=== PATIENT | male | born 1965 | race Caucasian/White ===

== ENCOUNTER 2020-09-10 10:10 | Inpatient (IN) | payer MEDICAID ==
[~2020-09-10] VITALS: Ht 175.3 cm; Wt 68.2 kg
[2020-09-10] VITALS (11 sets, daily range): BP systolic 75–123; BP diastolic 42–96
[2020-09-10] MEDS ORDERED: acetaminophen 325mg tablet PO STA (10:20)
[2020-09-10] MEDS ORDERED: normal saline 1000ML IV soln IV ONE (10:20)
[2020-09-10] MEDS ORDERED: TOBRAMYCIN IV STA (10:43)
[2020-09-10] MEDS ORDERED: NORMAL SALINE IV STA (10:43)
[2020-09-10 10:58] LABS: HEMOGLOBIN 9.7 g/dl (14.0-17.9); MEAN PLATELET VOLUME 7.5 FL (7.4-10.4); RED CELL DISTRIBUTION WIDTH 19.3 % (11.5-14.5)
[2020-09-10 11:00] LABS: BASOPHILS % (AUTO) 0.1 % (0-1); EOSINOPHILS % (AUTO) 0.2 % (0-6); HEMATOCRIT 29.9 % (42.0-52.0); LYMPHOCYTES # (AUTO) 0.3 X10'3 (1.1-4.8); LYMPHOCYTES % (AUTO) 2.5 % (21-51); MEAN CORPUSCULAR HEMOGLOBIN 25.4 PG (27.0-31.0); MEAN CORPUSCULAR HGB CONC 32.5 g/dL (33.0-36.5); MEAN CORPUSCULAR VOLUME 78.1 FL (78-98); MONOCYTES # (AUTO) 0.3 X10'3 (0-0.9); MONOCYTES % (AUTO) 2.2 % (2-12); NEUTROPHILS # (AUTO) 11.6 X10'3 (1.8-7.7); PLATELET COUNT 215 X10'3 (140-440); RED BLOOD COUNT 3.83 X10'6 (4.70-6.10); WHITE BLOOD COUNT 12.2 X10'3 (4.5-11.0)
[2020-09-10 11:12] LABS: ALANINE AMINOTRANSFERASE 99 U/L (12-78); ALBUMIN 2.5 G/DL (3.4-5.0); ALBUMIN/GLOBULIN RATIO 0.5 (1.1-1.5); ALKALINE PHOSPHATASE 178 IU/L (46-116); ANION GAP 8 (8-16); ASPARTATE AMINO TRANSFERASE 50 U/L (10-37); BILIRUBIN,TOTAL 0.5 MG/DL (0.1-1.0); BLOOD UREA NITROGEN 92 MG/DL (7-18); BUN/CREATININE RATIO 23.1 (5.4-32.0); C-REACTIVE PROTEIN 19.34 MG/DL (0.0-0.5); CALCIUM 7.8 MG/DL (8.5-10.1); CHLORIDE 90 MMOL/L (99-107); CREATININE 3.98 MG/DL (0.60-1.10); GLUCOSE 120 MG/DL (70-104); MAGNESIUM 2.9 MG/DL (1.5-2.4); POTASSIUM 5.6 MMOL/L (3.5-5.1); SODIUM 126 MMOL/L (135-145); TOTAL CARBON DIOXIDE 28.5 MMOL/L (24-32); TOTAL PROTEIN 7.9 G/DL (6.4-8.2); eGFR 16 ML/MIN
[2020-09-10 11:34] LABS: ANISOCYTOSIS 2+; MICROCYTOSIS 1+; PLATELET ESTIMATE NORMAL; TOTAL CELLS COUNTED 100
[2020-09-10 11:36] LABS: SCHISTOCYTES FEW
[2020-09-10 11:44] LABS: CLARITY,URINE CLOUDY (Clear); COLOR,URINE YELLOW (Yellow); GLUCOSE, URINE NEGATIVE (Neg); KETONES,URINE NEGATIVE (Neg); LEUKOCYTE ESTERASE ,URINE MODERATE (Neg); NITRITES, URINE NEGATIVE (Neg); OCCULT BLOOD,URINE LARGE (Neg); PH,URINE 8.5 (4.8-8.0); PROTEIN,URINE 100 mg/dl (Neg); UROBILINOGEN,URINE 0.2 E.U/dL (0.2-1.0)
[2020-09-10 11:47] LABS: UA COLLECTION TYPE FOLEY CATH
[2020-09-10 11:50] LABS: BACTERIA,URINE 4+ /HPF (Neg); RBC,URINE TNTC /HPF (0-2); SQUAMOUS EPITHELIAL CELL,UR MODERATE /LPF (FEW); WBC,URINE TNTC /HPF (0-4)
[2020-09-10] MEDS ORDERED: CYCL-394 PO (12:35)
[2020-09-10] MEDS ORDERED: HYDR-4383 PO (12:35)
[2020-09-10] MEDS ORDERED: LORA-269 PO (12:35)
[2020-09-10] MEDS ORDERED: GABA300C PO (12:35)
[2020-09-10] MEDS ORDERED: PHEN-716 PO (12:35)
[2020-09-10] MEDS ORDERED: MELA3TAB39 PO (12:35)
[2020-09-10] MEDS ORDERED: FENT1PAT7 TOP (12:35)
[2020-09-10] MEDS ORDERED: POLY17PO10 PO (12:35)
[2020-09-10] MEDS ORDERED: METH5TAB2 PO (12:35)
[2020-09-10] MEDS ORDERED: PANT-47 PO (12:35)
[2020-09-10] MEDS ORDERED: acetaminophen 325mg tablet PO PRN (13:05)
[2020-09-10] MEDS ORDERED: ondansetron/PF 4mg/2ml inj IV PRN ×2 (13:05→19:35)
[2020-09-10] MEDS ORDERED: magnesium hydroxide 30ml (MOM) UD suspension PO PRN (13:05)
[2020-09-10] MEDS ORDERED: mag hydrox/Alum hydrox/simeth 30ml oral suspension PO PRN (13:05)
[2020-09-10] MEDS: normal saline 1000ml 1,000 ML IV SCH ×2 (14:46→23:12)
[2020-09-10] MEDS: morphine 2 MG/ML inj. syringe IV PRN (14:47)
--- NOTE | 2020-09-10 16:56 | NUR ---
RECEIVED REPORT FROM GLORIA JON
[2020-09-10] MEDS ORDERED: polyethylene glycol 3350 17gm powd pack PO PRN (17:55)
--- NOTE | 2020-09-10 18:11 | NUR ---
PT ARRIVED ON FLOOR
--- NOTE | 2020-09-10 18:25 | NUR ---
GAVE REPORT TO GLORIA ARROYO
--- NOTE | 2020-09-10 18:25 | NUR ---
Patient in room PCU 3010. I have received report from Elaine CASTRO and had the opportunity to ask questions and assume patient care.
[2020-09-10] MEDS ORDERED: iohexol 300 MG/1 ML 50ml polymer ONE (18:53)
[2020-09-10] MEDS ORDERED: ringers solution, lacted 1,000 ML IV SCH (19:35)
[2020-09-10] MEDS ORDERED: morphine 2 MG/ML inj. syringe IV PRN (19:35)
[2020-09-10] MEDS ORDERED: meperidine/PF 25mg/ml syringe IV PRN ×3 (19:35)
[2020-09-10] MEDS ORDERED: proCHLORperazine 10 MG/2 ml inj IV PRN (19:35)
[2020-09-10] MEDS ORDERED: morphine 4 MG/ML inj SYRINge IV PRN (19:35)
[2020-09-10] MEDS: LORazepam 1 MG tablet PO SCH (20:00)
[2020-09-10] MEDS: methadone 5mg tablet PO SCH (20:00)
[2020-09-10] MEDS: cyclobenzaprine 10mg tablet PO SCH (20:00)
[2020-09-10] MEDS ORDERED: pantoprazole 40mg Tablet.DR PO SCH (20:00)
[2020-09-10] MEDS ORDERED: fluoroscein sod 10% (100mg/ml) 5ml vial ONE (20:32)
[2020-09-10] MEDS ORDERED: sevoflurane 250ml liquid IH ONE (20:32)
[2020-09-10] MEDS ORDERED: glycopyrrolate 0.2mg/ml inj ONE (20:32)
[2020-09-10] MEDS ORDERED: midazolam 2 mg/2 ml injection ONE (20:44)
[2020-09-10] MEDS ORDERED: fentaNYL/PF 50MCG/1 ML 2ML syringe ONE ×2 (20:44→21:12)
[2020-09-10] MEDS ORDERED: propofol inj 20 ML IV ONE (20:49)
[2020-09-10] MEDS ORDERED: LIDOcaine 1%/PF 5ML 10 MG/ML VIAL ONE (20:49)
[2020-09-10] MEDS: tamsulosin 0.4mg capsule PO SCH (21:00)
[2020-09-10] MEDS: phenazopyridine 100mg tablet PO SCH (21:00)
[2020-09-10] MEDS: gabapentin 300mg capsule PO SCH (21:00)
[2020-09-10] MEDS: Melatonin 3mg tablet PO SCH (21:00)
[2020-09-10] MEDS ORDERED: rocuronium 10mg/ml inj IV ONE (21:17)
[2020-09-10] MEDS ORDERED: phenylephrine 10mg/ml inj. ONE (21:33)
--- NOTE | 2020-09-10 22:04 | NUR ---
Received from OR via , accompanied by Anesthesiologist DR LINDA and report given by Anesthesiolgist. AWAKENS TO VOICE. VITALS STABLE. EMERALD PAIN . UNGER WITH LIGHT RED URINE IN BAG. NG PLACED TO LIS.
[2020-09-10] MEDS ORDERED: bisacodyl 10mg suppository rectal RC PRN (22:05)
--- NOTE | 2020-09-10 22:54 | NUR ---
Report called to receiving nurse. Transferred via BED Belongings . Special Issues communicated to receiving nurse. AWAKE AND ORIENTED. VITALS STABLE. EMERALD PAIN TO OPERATIVE AREA. TO PCU RM 310 AT THIS TIME.
[2020-09-10] MEDS: pantoprazole 40MG/NS 100ML BAG 100 ML IV SCH (23:04)
--- NOTE | 2020-09-10 23:37 | NUR ---
MD Cornell notified for low blood pressure post procedure. PAGER ID: [phone] MESSAGE: Re: Jordan Stock. RM: [phone]. Patient returned from ureter stent placement & BPs are 90/48 & 75/42. Sarthak CASTRO [id number]
[2020-09-11] VITALS (13 sets, daily range): BP systolic 73–122; BP diastolic 42–79
[2020-09-11] MEDS ORDERED: normal saline 1000ml 1,000 ML IV ONE (00:25)
[2020-09-11] MEDS ORDERED: albumin (Human) 5% 250ml 250 ML IV ONE (00:25)
--- NOTE | 2020-09-11 00:25 | NUR ---
Repaged MD Cornell regarding persistently low blood pressure. PAGER ID: [phone] MESSAGE: Re: Jordan Stock. Rm: [phone]. Manual blood pressure reading 78/52 & 73/41. Sarthak CASTRO [id number]
[2020-09-11 02:05] LABS: BASOPHILS % (AUTO) 0.2 % (0-1); EOSINOPHILS % (AUTO) 0 % (0-6); HEMOGLOBIN 7.9 g/dl (14.0-17.9); LYMPHOCYTES # (AUTO) 0.3 X10'3 (1.1-4.8); MEAN CORPUSCULAR VOLUME 78.7 FL (78-98)
[2020-09-11 02:06] LABS: HEMATOCRIT 24.1 % (42.0-52.0); LYMPHOCYTES % (AUTO) 2.3 % (21-51); MEAN CORPUSCULAR HEMOGLOBIN 25.8 PG (27.0-31.0); MEAN CORPUSCULAR HGB CONC 32.7 g/dL (33.0-36.5); MEAN PLATELET VOLUME 7.7 FL (7.4-10.4); MONOCYTES # (AUTO) 0.8 X10'3 (0-0.9); MONOCYTES % (AUTO) 6.3 % (2-12); NEUTROPHILS # (AUTO) 12.1 X10'3 (1.8-7.7); NEUTROPHILS % (AUTO) 91.2 % (42-75); PLATELET COUNT 138 X10'3 (140-440); RED BLOOD COUNT 3.06 X10'6 (4.70-6.10); RED CELL DISTRIBUTION WIDTH 19.4 % (11.5-14.5); WHITE BLOOD COUNT 13.3 X10'3 (4.5-11.0)
[2020-09-11 02:08] LABS: ANION GAP 10 (8-16); BLOOD UREA NITROGEN 88 MG/DL (7-18); BUN/CREATININE RATIO 24.4 (5.4-32.0); CHLORIDE 102 MMOL/L (99-107); GLUCOSE 112 MG/DL (70-104); POTASSIUM 4.8 MMOL/L (3.5-5.1); SODIUM 135 MMOL/L (135-145); TOTAL CARBON DIOXIDE 23.3 MMOL/L (24-32); eGFR 18 ML/MIN
[2020-09-11] MEDS: pantoprazole 40MG/NS 100ML BAG 100 ML IV SCH ×5 (02:33→22:03)
--- NOTE | 2020-09-11 03:08 | NUR ---
Paged MD Cornell regarding drop in H&H. PAGER ID: [phone] MESSAGE: RE: Jordan Stock. Rm: [phone]. Pt: H&H dropped from 9.7/29.9 to 7.9/24.1. Do you want repeat hemogram in 6 hours? Sarthak CASTRO [id number]
--- NOTE | 2020-09-11 03:45 | NUR ---
Repaged MD Cornell regarding consistently low BP after one liter bolus & albumin administration. PAGER ID: [phone] MESSAGE: Re: Jordan Stock. Rm: [phone]. FYI: Patient blood pressure has remained persistently low 83/56 after liter bolus & albumin. Sarthak CASTRO, [id number]
--- NOTE | 2020-09-11 06:15 | NUR ---
Problems reprioritized. Patient report given, questions answered & plan of care reviewed with Lee Ann CASTRO.
--- NOTE | 2020-09-11 06:25 | NUR ---
Patient in room PCU 3010. I have received report from Sarthak CASTRO and had the opportunity to ask questions and assume patient care.
[2020-09-11] MEDS ORDERED: levoFLOXACIN-Levaquin 250mg/D5 50 ML IV SCH (08:20)
[2020-09-11] MEDS: normal saline 1000ml 1,000 ML IV SCH ×2 (09:05→20:04)
[2020-09-11] MEDS: methadone 5mg tablet PO SCH ×2 (11:02→19:25)
[2020-09-11] MEDS: cyclobenzaprine 10mg tablet PO SCH ×2 (11:08→19:25)
[2020-09-11] MEDS: LORazepam 1 MG tablet PO SCH ×2 (11:08→19:25)
[2020-09-11] MEDS: gabapentin 300mg capsule PO SCH (11:09)
[2020-09-11] MEDS: phenazopyridine 100mg tablet PO SCH ×3 (11:09→22:01)
[2020-09-11] MEDS: fentaNYL 25MCG/hour patch.TD72 TD SCH (11:09)
--- NOTE | 2020-09-11 11:24 | NUR ---
Page sent to Dr. Hussein: PAGER ID: [phone] MESSAGE: [phone] Jordan Stock: FYI patient has positive blood cultures-Miles ordered Meropenum for the abx. Thanks, Lee Ann [email or web address]
[2020-09-11] MEDS: meropenem inj 500 MG in normal saline 100ml IV soln 100 ML IV SCH ×2 (14:10→20:04)
--- NOTE | 2020-09-11 18:06 | NUR ---
Patient in room PCU 3010. I have received report from Lee Ann CASTRO and had the opportunity to ask questions and assume patient care.
--- NOTE | 2020-09-11 18:07 | NUR ---
Problems reprioritized. Patient report given, questions answered & plan of care reviewed with Sarthak CASTRO.
[2020-09-11] MEDS ORDERED: LIDOcaine 2% 10ml TOPICAL JELLY (Urojet) TP ONE (18:20)
[2020-09-11] MEDS: heparin, porcine 5000 units/ml vial SQ SCH (19:26)
[2020-09-11] MEDS: Melatonin 3mg tablet PO SCH (21:00)
[2020-09-11] MEDS: tamsulosin 0.4mg capsule PO SCH (22:01)
[2020-09-11] MEDS: HYDROcodone/acetaminophen 5mg/325mg tablet PO PRN (22:10)
[2020-09-12] MEDS: pantoprazole 40MG/NS 100ML BAG 100 ML IV SCH ×5 (01:35→23:19)
[2020-09-12 02:00] VITALS: BP 103/64
[2020-09-12] MEDS: HYDROcodone/acetaminophen 5mg/325mg tablet PO PRN ×2 (04:34→19:30)
[2020-09-12] MEDS: normal saline 1000ml 1,000 ML IV SCH ×2 (05:25→15:05)
[2020-09-12 06:00] VITALS: BP 99/64
--- NOTE | 2020-09-12 06:32 | NUR ---
Problems reprioritized. Patient report given, questions answered & plan of care reviewed with Marissa CASTRO.
--- NOTE | 2020-09-12 06:58 | NUR ---
Patient in room PCU 3010. I have received report from GLORIA ARROYO and had the opportunity to ask questions and assume patient care.
[2020-09-12 07:57] LABS: BASOPHILS % (AUTO) 0.4 % (0-1); EOSINOPHILS # (AUTO) 0.2 X10'3 (0-0.9); EOSINOPHILS % (AUTO) 2.3 % (0-6); HEMATOCRIT 26.7 % (42.0-52.0); HEMOGLOBIN 8.7 g/dl (14.0-17.9); LYMPHOCYTES # (AUTO) 0.9 X10'3 (1.1-4.8); LYMPHOCYTES % (AUTO) 9.2 % (21-51); MEAN CORPUSCULAR HEMOGLOBIN 26.1 PG (27.0-31.0); MEAN CORPUSCULAR HGB CONC 32.7 g/dL (33.0-36.5); MEAN CORPUSCULAR VOLUME 79.9 FL (78-98); MEAN PLATELET VOLUME 7.9 FL (7.4-10.4); MONOCYTES % (AUTO) 9.4 % (2-12); NEUTROPHILS # (AUTO) 8.1 X10'3 (1.8-7.7); NEUTROPHILS % (AUTO) 78.7 % (42-75); PLATELET COUNT 181 X10'3 (140-440); RED BLOOD COUNT 3.35 X10'6 (4.70-6.10); RED CELL DISTRIBUTION WIDTH 19.4 % (11.5-14.5); WHITE BLOOD COUNT 10.3 X10'3 (4.5-11.0)
[2020-09-12 08:37] LABS: ALBUMIN 2.3 G/DL (3.4-5.0); ANION GAP 16 (8-16); BLOOD UREA NITROGEN 54 MG/DL (7-18); BUN/CREATININE RATIO 33.1 (5.4-32.0); CALCIUM 9.3 MG/DL (8.5-10.1); CHLORIDE 109 MMOL/L (99-107); CREATININE 1.63 MG/DL (0.60-1.10); GLUCOSE 67 MG/DL (70-104); POTASSIUM 3.9 MMOL/L (3.5-5.1); SODIUM 145 MMOL/L (135-145); eGFR 44 ML/MIN
[2020-09-12 09:17] LABS: PLATELET ESTIMATE NORMAL
[2020-09-12 09:18] LABS: ANISOCYTOSIS 2+; HYPOGRANULAR PLATELETS FEW; MICROCYTOSIS 1+
[2020-09-12] MEDS: cyclobenzaprine 10mg tablet PO SCH ×2 (10:44→20:09)
[2020-09-12] MEDS: phenazopyridine 100mg tablet PO SCH ×3 (10:44→20:09)
[2020-09-12] MEDS: methadone 5mg tablet PO SCH ×2 (10:44→20:10)
[2020-09-12] MEDS: LORazepam 1 MG tablet PO SCH ×2 (10:44→20:09)
[2020-09-12] MEDS: gabapentin 300mg capsule PO SCH (10:44)
[2020-09-12] MEDS: heparin, porcine 5000 units/ml vial SQ SCH ×2 (10:45→20:10)
[2020-09-12] MEDS: meropenem inj 500 MG in normal saline 100ml IV soln 100 ML IV SCH ×2 (10:46→20:09)
[2020-09-12 11:00] VITALS: BP 113/62
[2020-09-12 15:00] VITALS: BP 96/58
[2020-09-12] MEDS ORDERED: ondansetron 4mg rapidly disintigrating tab PO PRN (15:40)
[2020-09-12] MEDS: morphine 2 MG/ML inj. syringe IV PRN (17:10)
[2020-09-12 18:00] VITALS: BP 94/64
--- NOTE | 2020-09-12 18:33 | NUR ---
Patient in room PCU 3010. I have received report from GLORIA Ann and had the opportunity to ask questions and assume patient care.
--- NOTE | 2020-09-12 18:53 | NUR ---
Problems reprioritized. Patient report given, questions answered & plan of care reviewed with GLORIA QUISPE.
[2020-09-12] MEDS: lactobacillus rhamnosus 10,000 MMU CELLS/CAPSULE PO SCH (20:10)
[2020-09-12] MEDS: tamsulosin 0.4mg capsule PO SCH (20:10)
[2020-09-12] MEDS: Melatonin 3mg tablet PO SCH (21:00)
[2020-09-12 22:00] VITALS: BP 94/57
[2020-09-13] MEDS: normal saline 1000ml 1,000 ML IV SCH ×3 (01:05→16:16)
[2020-09-13 02:00] VITALS: BP 118/74
[2020-09-13] MEDS: HYDROcodone/acetaminophen 5mg/325mg tablet PO PRN ×3 (02:35→22:24)
[2020-09-13] MEDS: morphine 2 MG/ML inj. syringe IV PRN (04:34)
[2020-09-13] MEDS: pantoprazole 40MG/NS 100ML BAG 100 ML IV SCH ×6 (04:34→22:27)
--- NOTE | 2020-09-13 06:00 | NUR ---
Patient in room PCU 3010. I have received report from BRITTANEY CASTRO and had the opportunity to ask questions and assume patient care.
--- NOTE | 2020-09-13 06:24 | NUR ---
Problems reprioritized. Patient report given, questions answered & plan of care reviewed with GLORIA Ross.
[2020-09-13 06:45] LABS: BASOPHILS # (AUTO) 0.1 X10'3 (0-0.2); EOSINOPHILS # (AUTO) 0.3 X10'3 (0-0.9); EOSINOPHILS % (AUTO) 5.4 % (0-6); HEMATOCRIT 27.2 % (42.0-52.0); HEMOGLOBIN 8.9 g/dl (14.0-17.9); LYMPHOCYTES # (AUTO) 0.9 X10'3 (1.1-4.8); LYMPHOCYTES % (AUTO) 15.9 % (21-51); MEAN CORPUSCULAR HEMOGLOBIN 26.1 PG (27.0-31.0); MEAN CORPUSCULAR HGB CONC 32.9 g/dL (33.0-36.5); MEAN CORPUSCULAR VOLUME 79.4 FL (78-98); MEAN PLATELET VOLUME 7.6 FL (7.4-10.4); MONOCYTES # (AUTO) 0.4 X10'3 (0-0.9); MONOCYTES % (AUTO) 7.4 % (2-12); NEUTROPHILS % (AUTO) 70.3 % (42-75); PLATELET COUNT 203 X10'3 (140-440); RED BLOOD COUNT 3.42 X10'6 (4.70-6.10); RED CELL DISTRIBUTION WIDTH 19.1 % (11.5-14.5); WHITE BLOOD COUNT 5.7 X10'3 (4.5-11.0)
[2020-09-13 06:55] LABS: ALBUMIN 2.2 G/DL (3.4-5.0); ANION GAP 9 (8-16); BLOOD UREA NITROGEN 29 MG/DL (7-18); BUN/CREATININE RATIO 27.6 (5.4-32.0); CALCIUM 8.1 MG/DL (8.5-10.1); CHLORIDE 110 MMOL/L (99-107); CREATININE 1.05 MG/DL (0.60-1.10); GLUCOSE 96 MG/DL (70-104); POTASSIUM 3.4 MMOL/L (3.5-5.1); SODIUM 145 MMOL/L (135-145); TOTAL CARBON DIOXIDE 25.6 MMOL/L (24-32); eGFR 73 ML/MIN
[2020-09-13 07:00] VITALS: BP 121/68
[2020-09-13] MEDS: cyclobenzaprine 10mg tablet PO SCH ×2 (08:45→20:06)
[2020-09-13] MEDS: phenazopyridine 100mg tablet PO SCH ×3 (08:46→21:59)
[2020-09-13] MEDS: lactobacillus rhamnosus 10,000 MMU CELLS/CAPSULE PO SCH ×2 (08:46→20:06)
[2020-09-13] MEDS: gabapentin 300mg capsule PO SCH (08:46)
[2020-09-13] MEDS: LORazepam 1 MG tablet PO SCH ×2 (08:46→20:07)
[2020-09-13] MEDS: methadone 5mg tablet PO SCH ×2 (08:46→20:06)
[2020-09-13] MEDS: heparin, porcine 5000 units/ml vial SQ SCH ×2 (08:47→20:06)
[2020-09-13] MEDS ORDERED: potassium Cl 20 mEq SR tablet PO STA (09:41)
[2020-09-13] MEDS: meropenem inj 500 MG in normal saline 100ml IV soln 100 ML IV SCH ×2 (09:56→20:05)
[2020-09-13 11:00] VITALS: BP 118/67
--- NOTE | 2020-09-13 12:23 | NUR ---
PATIENT WENT TO CT Addendum: 09/13/20 at 1224 by Vandana Dejesus RN WRONG PATIENT
[2020-09-13 15:00] VITALS: BP 121/80
--- NOTE | 2020-09-13 17:45 | NUR ---
PATIENT IS PLEASANTLY NON COMPLIANT WITH TURNING AND REPOSITIONING
--- NOTE | 2020-09-13 18:40 | NUR ---
Problems reprioritized. Patient report given, questions answered & plan of care reviewed with ERIKA CASTRO.
[2020-09-13] MEDS: tamsulosin 0.4mg capsule PO SCH (20:07)
[2020-09-13] MEDS: Melatonin 3mg tablet PO SCH (20:07)
[2020-09-14] MEDS: morphine 2 MG/ML inj. syringe IV PRN ×5 (02:22→05:55)
[2020-09-14] MEDS: pantoprazole 40MG/NS 100ML BAG 100 ML IV SCH ×4 (05:19→19:10)
--- NOTE | 2020-09-14 06:00 | NUR ---
Patient in room PCU 3010. I have received report from GLORIA Benton and had the opportunity to ask questions and assume patient care.
[2020-09-14 06:16] LABS: ALBUMIN 2.2 G/DL (3.4-5.0); ANION GAP 7 (8-16); BLOOD UREA NITROGEN 20 MG/DL (7-18); BUN/CREATININE RATIO 21.5 (5.4-32.0); CALCIUM 8.3 MG/DL (8.5-10.1); CHLORIDE 108 MMOL/L (99-107); CREATININE 0.93 MG/DL (0.60-1.10); GLUCOSE 91 MG/DL (70-104); POTASSIUM 3.8 MMOL/L (3.5-5.1); SODIUM 140 MMOL/L (135-145); TOTAL CARBON DIOXIDE 24.6 MMOL/L (24-32); eGFR 84 ML/MIN
[2020-09-14 06:28] LABS: BASOPHILS # (AUTO) 0.1 X10'3 (0-0.2); BASOPHILS % (AUTO) 1.3 % (0-1); EOSINOPHILS # (AUTO) 0.4 X10'3 (0-0.9); EOSINOPHILS % (AUTO) 9.2 % (0-6); HEMATOCRIT 26.6 % (42.0-52.0); HEMOGLOBIN 8.8 g/dl (14.0-17.9); LYMPHOCYTES # (AUTO) 1.2 X10'3 (1.1-4.8); LYMPHOCYTES % (AUTO) 28.1 % (21-51); MEAN PLATELET VOLUME 7.8 FL (7.4-10.4); MONOCYTES # (AUTO) 0.3 X10'3 (0-0.9); MONOCYTES % (AUTO) 8.1 % (2-12); NEUTROPHILS # (AUTO) 2.2 X10'3 (1.8-7.7); NEUTROPHILS % (AUTO) 53.3 % (42-75); PLATELET COUNT 224 X10'3 (140-440); RED BLOOD COUNT 3.36 X10'6 (4.70-6.10); RED CELL DISTRIBUTION WIDTH 19.4 % (11.5-14.5); WHITE BLOOD COUNT 4.1 X10'3 (4.5-11.0)
[2020-09-14 06:33] VITALS: BP 129/86
[2020-09-14 07:00] VITALS: BP 120/67
[2020-09-14 07:40] LABS: PLATELET ESTIMATE NORMAL; POIKILOCYTOSIS FEW
[2020-09-14 07:41] LABS: ANISOCYTOSIS 2+; MICROCYTOSIS 1+
[2020-09-14] MEDS: normal saline 1000ml 1,000 ML IV SCH ×2 (07:41→17:05)
[2020-09-14] MEDS: lactobacillus rhamnosus 10,000 MMU CELLS/CAPSULE PO SCH ×2 (07:41→20:14)
[2020-09-14] MEDS: cyclobenzaprine 10mg tablet PO SCH ×2 (07:41→20:14)
[2020-09-14] MEDS: phenazopyridine 100mg tablet PO SCH ×3 (07:42→20:15)
[2020-09-14] MEDS: heparin, porcine 5000 units/ml vial SQ SCH ×2 (07:42→20:15)
[2020-09-14] MEDS: LORazepam 1 MG tablet PO SCH ×2 (07:42→20:14)
[2020-09-14] MEDS: meropenem inj 500 MG in normal saline 100ml IV soln 100 ML IV SCH ×2 (07:43→20:22)
[2020-09-14] MEDS: HYDROcodone/acetaminophen 5mg/325mg tablet PO PRN ×3 (07:43→23:23)
[2020-09-14] MEDS: gabapentin 300mg capsule PO SCH (07:43)
[2020-09-14] MEDS: methadone 5mg tablet PO SCH ×2 (07:43→20:14)
[2020-09-14] MEDS: fentaNYL 25MCG/hour patch.TD72 TD SCH (10:13)
[2020-09-14 11:00] VITALS: BP 118/68
[2020-09-14 15:00] VITALS: BP 118/61
[2020-09-14 18:00] VITALS: BP 124/74
--- NOTE | 2020-09-14 18:48 | NUR ---
Problems reprioritized. Patient report given, questions answered & plan of care reviewed with GLORIA Gama.
[2020-09-14] MEDS: tamsulosin 0.4mg capsule PO SCH (20:14)
[2020-09-14] MEDS: Melatonin 3mg tablet PO SCH ×2 (20:14→21:00)
[2020-09-14 22:00] VITALS: BP 121/72
--- NOTE | 2020-09-14 22:38 | NUR ---
Patient in room PCU 3010. I have received report from Simone CASTRO and had the opportunity to ask questions and assume patient care.
[2020-09-15] MEDS: pantoprazole 40MG/NS 100ML BAG 100 ML IV SCH ×2 (00:58→07:36)
[2020-09-15] MEDS: normal saline 1000ml 1,000 ML IV SCH (01:40)
[2020-09-15 02:00] VITALS: BP 127/76
[2020-09-15] MEDS: morphine 2 MG/ML inj. syringe IV PRN (03:40)
[2020-09-15 06:00] VITALS: BP 137/76
--- NOTE | 2020-09-15 06:15 | NUR ---
Problems reprioritized. Patient report given, questions answered & plan of care reviewed with Barbara CASTRO.
--- NOTE | 2020-09-15 06:53 | NUR ---
Patient in room PCU 3010. I have received report from Robbi CASTRO and had the opportunity to ask questions and assume patient care.
[2020-09-15 07:05] LABS: BASOPHILS % (AUTO) 1.1 % (0-1); EOSINOPHILS # (AUTO) 0.3 X10'3 (0-0.9); EOSINOPHILS % (AUTO) 7.5 % (0-6); HEMATOCRIT 27.6 % (42.0-52.0); HEMOGLOBIN 8.9 g/dl (14.0-17.9); LYMPHOCYTES # (AUTO) 1.4 X10'3 (1.1-4.8); LYMPHOCYTES % (AUTO) 31.2 % (21-51); MEAN CORPUSCULAR HEMOGLOBIN 25.5 PG (27.0-31.0); MEAN CORPUSCULAR HGB CONC 32.3 g/dL (33.0-36.5); MEAN CORPUSCULAR VOLUME 78.9 FL (78-98); MEAN PLATELET VOLUME 7.8 FL (7.4-10.4); MONOCYTES # (AUTO) 0.3 X10'3 (0-0.9); MONOCYTES % (AUTO) 7.2 % (2-12); NEUTROPHILS # (AUTO) 2.4 X10'3 (1.8-7.7); PLATELET COUNT 265 X10'3 (140-440); WHITE BLOOD COUNT 4.5 X10'3 (4.5-11.0)
[2020-09-15] MEDS: lactobacillus rhamnosus 10,000 MMU CELLS/CAPSULE PO SCH ×2 (07:33→21:22)
[2020-09-15] MEDS: cyclobenzaprine 10mg tablet PO SCH ×2 (07:33→21:22)
[2020-09-15] MEDS: phenazopyridine 100mg tablet PO SCH ×3 (07:34→21:21)
[2020-09-15] MEDS: gabapentin 300mg capsule PO SCH (07:34)
[2020-09-15] MEDS: methadone 5mg tablet PO SCH ×2 (07:35→21:22)
[2020-09-15] MEDS: heparin, porcine 5000 units/ml vial SQ SCH ×2 (07:35→21:21)
[2020-09-15] MEDS: LORazepam 1 MG tablet PO SCH ×2 (07:35→21:22)
[2020-09-15 07:46] LABS: ALBUMIN 2.3 G/DL (3.4-5.0); ANION GAP 9 (8-16); BLOOD UREA NITROGEN 16 MG/DL (7-18); BUN/CREATININE RATIO 19.5 (5.4-32.0); CALCIUM 8.1 MG/DL (8.5-10.1); CHLORIDE 109 MMOL/L (99-107); CREATININE 0.82 MG/DL (0.60-1.10); GLUCOSE 89 MG/DL (70-104); POTASSIUM 3.9 MMOL/L (3.5-5.1); SODIUM 143 MMOL/L (135-145); TOTAL CARBON DIOXIDE 24.6 MMOL/L (24-32); eGFR > 90 ML/MIN
[2020-09-15 07:59] LABS: ANISOCYTOSIS 2+; MICROCYTOSIS 1+; PLATELET ESTIMATE NORMAL
[2020-09-15 08:00] LABS: ELLIPTOCYTES FEW; SCHISTOCYTES FEW; STOMATOCYTES FEW; TEAR DROP CELLS FEW
[2020-09-15] MEDS: meropenem inj 500 MG in normal saline 100ml IV soln 100 ML IV SCH ×2 (09:15→21:23)
[2020-09-15] MEDS ORDERED: oxybutynin 5mg tablet PO PRN (10:35)
[2020-09-15 11:00] VITALS: BP 114/75
[2020-09-15] MEDS: HYDROcodone/acetaminophen 5mg/325mg tablet PO PRN (13:40)
[2020-09-15 15:00] VITALS: BP 117/73
--- NOTE | 2020-09-15 15:39 | NUR ---
Initial: Pt admit DX UTI, sepsis, PATRICIA post-obstructive s/p stent placement, and hx chronic pain per EMR. PO 50-75% avg regular diet decent intake given wt. LBM 09/13. Will continue to monitor for additional protein needs pending further PO hx this admit. Rec: 1. continue regular diet 2. monitor for ONS needs 3. routine bowel care; consider opioid antagonist given amount of opioids receiving 4. wts per rx Addendum: 09/15/20 at [address] Amended: Links added.
[2020-09-15 18:00] VITALS: BP 108/68
--- NOTE | 2020-09-15 18:20 | NUR ---
Problems reprioritized. Patient report given, questions answered & plan of care reviewed with Marty CASTRO.
[2020-09-15] MEDS: Melatonin 3mg tablet PO SCH (21:00)
[2020-09-15] MEDS: tamsulosin 0.4mg capsule PO SCH (21:22)
[2020-09-15 22:00] VITALS: BP 135/84
[2020-09-16 02:00] VITALS: BP 131/81
[2020-09-16] MEDS: morphine 2 MG/ML inj. syringe IV PRN ×2 (02:21→15:41)
[2020-09-16] MEDS: HYDROcodone/acetaminophen 5mg/325mg tablet PO PRN ×3 (05:15→22:51)
[2020-09-16 07:00] VITALS: BP 119/77
[2020-09-16] MEDS: methadone 5mg tablet PO SCH ×2 (08:21→21:03)
[2020-09-16] MEDS: lactobacillus rhamnosus 10,000 MMU CELLS/CAPSULE PO SCH ×2 (08:21→21:03)
[2020-09-16] MEDS: pantoprazole 40mg Tablet.DR PO SCH (08:21)
[2020-09-16] MEDS: cyclobenzaprine 10mg tablet PO SCH ×2 (08:21→21:03)
[2020-09-16] MEDS: LORazepam 1 MG tablet PO SCH ×2 (08:21→21:04)
[2020-09-16] MEDS: phenazopyridine 100mg tablet PO SCH ×3 (08:21→21:03)
[2020-09-16] MEDS: gabapentin 300mg capsule PO SCH (08:21)
[2020-09-16] MEDS: heparin, porcine 5000 units/ml vial SQ SCH ×2 (08:22→21:03)
[2020-09-16 11:00] VITALS: BP 103/69
[2020-09-16] MEDS: meropenem inj 500 MG in normal saline 100ml IV soln 100 ML IV SCH ×2 (14:00→21:04)
[2020-09-16 15:00] VITALS: BP 138/65
--- NOTE | 2020-09-16 17:21 | NUR ---
rounded with Dr. Becerra in AM hour, sbar given, emar reviewed.
[2020-09-16 18:00] VITALS: BP 96/66
--- NOTE | 2020-09-16 18:25 | NUR ---
Patient in room PCU 3010. I have received report from GLORIA Hale and had the opportunity to ask questions and assume patient care.
--- NOTE | 2020-09-16 18:41 | NUR ---
Sbar report given to Augustina CASTRO, EMAR reviewed, questions answered.
[2020-09-16] MEDS: Melatonin 3mg tablet PO SCH ×2 (21:00→21:04)
[2020-09-16] MEDS: tamsulosin 0.4mg capsule PO SCH (21:04)
--- NOTE | 2020-09-16 21:42 | NUR ---
Pain administration reassessments not completed from day shift. Marked as not done to clear board.
[2020-09-16 22:43] VITALS: BP 97/73
[2020-09-17] MEDS: meropenem inj 500 MG in normal saline 100ml IV soln 100 ML IV SCH ×4 (02:08→20:43)
[2020-09-17] MEDS: morphine 2 MG/ML inj. syringe IV PRN ×2 (02:11→13:43)
[2020-09-17 02:22] VITALS: BP 105/75
--- NOTE | 2020-09-17 06:59 | NUR ---
Patient in room PCU 3010. I have received report from ALVIN CASTRO and had the opportunity to ask questions and assume patient care.
--- NOTE | 2020-09-17 06:59 | NUR ---
Problems reprioritized. Patient report given, questions answered & plan of care reviewed with GLORIA Arce.
[2020-09-17 07:09] VITALS: BP 109/76
[2020-09-17] MEDS: methadone 5mg tablet PO SCH ×2 (07:47→20:44)
[2020-09-17] MEDS: pantoprazole 40mg Tablet.DR PO SCH (07:47)
[2020-09-17] MEDS: cyclobenzaprine 10mg tablet PO SCH ×2 (07:47→20:44)
[2020-09-17] MEDS: LORazepam 1 MG tablet PO SCH ×2 (07:47→20:44)
[2020-09-17] MEDS: lactobacillus rhamnosus 10,000 MMU CELLS/CAPSULE PO SCH ×2 (07:47→20:44)
[2020-09-17] MEDS: phenazopyridine 100mg tablet PO SCH ×3 (07:48→20:44)
[2020-09-17] MEDS: gabapentin 300mg capsule PO SCH (07:48)
[2020-09-17] MEDS: heparin, porcine 5000 units/ml vial SQ SCH ×2 (07:48→20:46)
[2020-09-17] MEDS: fentaNYL 25MCG/hour patch.TD72 TD SCH (09:49)
[2020-09-17 11:00] VITALS: BP 98/64
[2020-09-17 16:41] VITALS: BP 82/50
[2020-09-17 18:00] VITALS: BP 100/67
--- NOTE | 2020-09-17 18:32 | NUR ---
Problems reprioritized. Patient report given, questions answered & plan of care reviewed with josiah burns.
[2020-09-17] MEDS: tamsulosin 0.4mg capsule PO SCH (20:44)
[2020-09-17] MEDS: Melatonin 3mg tablet PO SCH (20:53)
[2020-09-17 22:00] VITALS: BP 104/60
[2020-09-18 02:00] VITALS: BP 102/61
[2020-09-18] MEDS: morphine 2 MG/ML inj. syringe IV PRN ×2 (02:44→15:03)
[2020-09-18] MEDS: meropenem inj 500 MG in normal saline 100ml IV soln 100 ML IV SCH ×4 (02:44→20:16)
[2020-09-18 07:00] VITALS: BP 130/73
--- NOTE | 2020-09-18 07:39 | NUR ---
Patient in room PCU 3010. I have received report from Tonya CASTRO and had the opportunity to ask questions and assume patient care.
[2020-09-18] MEDS: methadone 5mg tablet PO SCH ×2 (07:50→20:17)
[2020-09-18] MEDS: cyclobenzaprine 10mg tablet PO SCH ×2 (07:50→20:20)
[2020-09-18] MEDS: phenazopyridine 100mg tablet PO SCH ×3 (07:50→20:20)
[2020-09-18] MEDS: lactobacillus rhamnosus 10,000 MMU CELLS/CAPSULE PO SCH ×2 (07:50→20:17)
[2020-09-18] MEDS: heparin, porcine 5000 units/ml vial SQ SCH (07:50)
[2020-09-18] MEDS: pantoprazole 40mg Tablet.DR PO SCH (07:51)
[2020-09-18] MEDS: LORazepam 1 MG tablet PO SCH ×2 (07:51→20:17)
[2020-09-18] MEDS: gabapentin 300mg capsule PO SCH (07:51)
--- NOTE | 2020-09-18 09:35 | NUR ---
Reassessment: Pt admit DX UTI, sepsis, PATRICIA post-obstructive s/p stent placement, and hx chronic pain and paraplegia per EMR. PO improved to 100% on 07/17, he is meeting his nutrition needs. No nutrition problem at this time. Will follow. Rec: 1. continue regular diet 2. monitor for ONS needs 3. routine bowel care, has prn dulcolax, milk of mag, and miralax 4. wts per rx Addendum: 09/18/20 at [address] Amended: Links added.
[2020-09-18 10:17] LABS: BASOPHILS % (AUTO) 0.3 % (0-1); EOSINOPHILS # (AUTO) 0.3 X10'3 (0-0.9); EOSINOPHILS % (AUTO) 5.5 % (0-6); HEMATOCRIT 30.1 % (42.0-52.0); HEMOGLOBIN 9.6 g/dl (14.0-17.9); LYMPHOCYTES # (AUTO) 1.4 X10'3 (1.1-4.8); LYMPHOCYTES % (AUTO) 22.9 % (21-51); MEAN CORPUSCULAR HEMOGLOBIN 25.1 PG (27.0-31.0); MEAN CORPUSCULAR HGB CONC 31.8 g/dL (33.0-36.5); MEAN CORPUSCULAR VOLUME 78.9 FL (78-98); MONOCYTES # (AUTO) 0.4 X10'3 (0-0.9); MONOCYTES % (AUTO) 6.6 % (2-12); NEUTROPHILS # (AUTO) 3.9 X10'3 (1.8-7.7); NEUTROPHILS % (AUTO) 64.7 % (42-75); PLATELET COUNT 419 X10'3 (140-440); RED BLOOD COUNT 3.82 X10'6 (4.70-6.10); RED CELL DISTRIBUTION WIDTH 19.3 % (11.5-14.5)
[2020-09-18 10:28] LABS: ALBUMIN 2.9 G/DL (3.4-5.0); ANION GAP 9 (8-16); BLOOD UREA NITROGEN 25 MG/DL (7-18); BUN/CREATININE RATIO 27.5 (5.4-32.0); CALCIUM 8.6 MG/DL (8.5-10.1); CHLORIDE 103 MMOL/L (99-107); CREATININE 0.91 MG/DL (0.60-1.10); GLUCOSE 91 MG/DL (70-104); POTASSIUM 4.6 MMOL/L (3.5-5.1); SODIUM 138 MMOL/L (135-145); TOTAL CARBON DIOXIDE 26.2 MMOL/L (24-32); eGFR 86 ML/MIN
[2020-09-18 10:54] LABS: ANISOCYTOSIS 2+; HYPOCHROMASIA 1+; MICROCYTOSIS 1+; PLATELET ESTIMATE NORMAL
[2020-09-18 10:55] LABS: POLYCHROMASIA FEW
[2020-09-18 11:00] VITALS: BP 105/63
[2020-09-18] MEDS: furosemide 20MG tablet PO SCH (12:15)
[2020-09-18] MEDS: HYDROcodone/acetaminophen 5mg/325mg tablet PO PRN ×2 (12:18→23:38)
[2020-09-18 15:00] VITALS: BP 107/67
--- NOTE | 2020-09-18 18:48 | NUR ---
Problems reprioritized. Patient report given, questions answered & plan of care reviewed with Janelle CASTRO.
[2020-09-18 19:00] VITALS: BP 98/62
[2020-09-18] MEDS: tamsulosin 0.4mg capsule PO SCH (20:20)
[2020-09-18] MEDS: Melatonin 3mg tablet PO SCH (20:20)
[2020-09-18 23:00] VITALS: BP 105/62
[2020-09-19] VITALS (20 sets, daily range): BP systolic 85–119; BP diastolic 56–75
[2020-09-19] MEDS: meropenem inj 500 MG in normal saline 100ml IV soln 100 ML IV SCH ×4 (02:48→19:42)
[2020-09-19] MEDS: morphine 2 MG/ML inj. syringe IV PRN ×2 (03:17→23:46)
--- NOTE | 2020-09-19 06:22 | NUR ---
Patient in room PCU 3010. I have received report from Karsten Luis and had the opportunity to ask questions and assume patient care.
[2020-09-19 07:11] LABS: BASOPHILS # (AUTO) 0.1 X10'3 (0-0.2); BASOPHILS % (AUTO) 1.4 % (0-1); EOSINOPHILS # (AUTO) 0.3 X10'3 (0-0.9); EOSINOPHILS % (AUTO) 5.9 % (0-6); HEMATOCRIT 29.5 % (42.0-52.0); HEMOGLOBIN 9.4 g/dl (14.0-17.9); LYMPHOCYTES # (AUTO) 1.3 X10'3 (1.1-4.8); LYMPHOCYTES % (AUTO) 25.8 % (21-51); MEAN CORPUSCULAR HEMOGLOBIN 25.1 PG (27.0-31.0); MEAN CORPUSCULAR VOLUME 78.6 FL (78-98); MEAN PLATELET VOLUME 6.9 FL (7.4-10.4); MONOCYTES # (AUTO) 0.3 X10'3 (0-0.9); MONOCYTES % (AUTO) 6.7 % (2-12); NEUTROPHILS # (AUTO) 3.1 X10'3 (1.8-7.7); NEUTROPHILS % (AUTO) 60.2 % (42-75); PLATELET COUNT 438 X10'3 (140-440); RED BLOOD COUNT 3.75 X10'6 (4.70-6.10); RED CELL DISTRIBUTION WIDTH 19.5 % (11.5-14.5); WHITE BLOOD COUNT 5.2 X10'3 (4.5-11.0)
[2020-09-19 07:17] LABS: ALBUMIN 2.9 G/DL (3.4-5.0); ANION GAP 8 (8-16); BLOOD UREA NITROGEN 29 MG/DL (7-18); BUN/CREATININE RATIO 33.7 (5.4-32.0); CALCIUM 9.5 MG/DL (8.5-10.1); CHLORIDE 102 MMOL/L (99-107); CREATININE 0.86 MG/DL (0.60-1.10); GLUCOSE 92 MG/DL (70-104); POTASSIUM 4.5 MMOL/L (3.5-5.1); SODIUM 138 MMOL/L (135-145); TOTAL CARBON DIOXIDE 28.2 MMOL/L (24-32); eGFR > 90 ML/MIN
[2020-09-19] MEDS: pantoprazole 40mg Tablet.DR PO SCH (07:23)
[2020-09-19] MEDS: cyclobenzaprine 10mg tablet PO SCH ×2 (07:23→19:43)
[2020-09-19] MEDS: phenazopyridine 100mg tablet PO SCH ×3 (07:23→19:43)
[2020-09-19] MEDS: furosemide 20MG tablet PO SCH (07:23)
[2020-09-19] MEDS: gabapentin 300mg capsule PO SCH (07:24)
[2020-09-19] MEDS: lactobacillus rhamnosus 10,000 MMU CELLS/CAPSULE PO SCH ×2 (07:24→19:43)
[2020-09-19] MEDS: LORazepam 1 MG tablet PO SCH ×2 (07:24→19:43)
[2020-09-19] MEDS: methadone 5mg tablet PO SCH ×2 (07:24→19:43)
[2020-09-19 07:51] LABS: ANISOCYTOSIS 2+; HYPOGRANULAR PLATELETS FEW; MICROCYTOSIS 1+; PLATELET ESTIMATE NORMAL
[2020-09-19] MEDS: HYDROcodone/acetaminophen 5mg/325mg tablet PO PRN (11:04)
[2020-09-19] MEDS ORDERED: ringers solution, lacted 1,000 ML IV SCH (12:20)
[2020-09-19] MEDS ORDERED: morphine 4 MG/ML inj SYRINge IV PRN (12:20)
[2020-09-19] MEDS ORDERED: proCHLORperazine 10 MG/2 ml inj IV PRN (12:20)
[2020-09-19] MEDS ORDERED: meperidine/PF 25mg/ml syringe IV PRN ×3 (12:20)
[2020-09-19] MEDS ORDERED: morphine 2 MG/ML inj. syringe IV PRN (12:20)
[2020-09-19] MEDS ORDERED: ondansetron/PF 4mg/2ml inj IV PRN (12:20)
[2020-09-19] MEDS ORDERED: fentaNYL/PF 50MCG/1 ML 2ML syringe ONE (12:33)
[2020-09-19] MEDS ORDERED: midazolam 2 mg/2 ml injection ONE (12:33)
[2020-09-19] MEDS ORDERED: sevoflurane 250ml liquid IH ONE (12:34)
[2020-09-19] MEDS ORDERED: propofol inj 20 ML IV ONE (12:34)
[2020-09-19] MEDS ORDERED: iohexol 300 MG/1 ML 50ml polymer ONE (13:01)
[2020-09-19] MEDS ORDERED: normal saline 1000ml 1,000 ML IV ONE (15:10)
--- NOTE | 2020-09-19 15:14 | NUR ---
Received from OR via SURGICAL BED , accompanied by Anesthesiologist TOMASA and report given by Anesthesiolgist. PATIENT WITH UNGER CATHETER PRESENT. VSS. 20G PIV IN RIGHT UE RUNNING LR AT 100. Addendum: 09/19/20 at 1528 by Jensen Fang RN, RN Amended: Links added.
--- NOTE | 2020-09-19 15:54 | NUR ---
Report called to receiving nurse. Transferred via PCU BED WITH NO Belongings . Special Issues communicated to receiving nurse CECE CASTRO.BED LOW, CALL LIGHT PRESENT AND RN PRESENT TO ASSESS PATIENT . Addendum: 09/19/20 at 1612 by Jensen Fang RN RN Amended: Links added.
--- NOTE | 2020-09-19 17:53 | NUR ---
Received pt from recovery room in stable condition. pt c/o feeling cold warm blanket provided. V/S 108/69, 96% R/A, T 95.3, Resp 16. cont to monitor per protocol.
--- NOTE | 2020-09-19 18:00 | NUR ---
Patient in room PCU 3010. I have received report from Leena CASTRO and had the opportunity to ask questions and assume patient care.
--- NOTE | 2020-09-19 18:18 | NUR ---
Problems reprioritized. Patient report given, questions answered & plan of care reviewed with GLORIA Perez.
[2020-09-19] MEDS: tamsulosin 0.4mg capsule PO SCH (19:43)
[2020-09-19] MEDS: Melatonin 3mg tablet PO SCH (19:48)
--- NOTE | 2020-09-19 21:00 | NUR ---
Meropenem Patient came from surgery at 1600 and the antibiotic was administered at 170 Addendum: 09/20/20 at 0214 by Ana Menard RN continuation: ... administered at 1705. Pharmacy was called about when to give the 2000 dose, and per pharmacy they answered "skip the 2000 dose and give the next one at 0200". 2000 dose was non-administered per pharmacy note.
[2020-09-20] MEDS: meropenem inj 500 MG in normal saline 100ml IV soln 100 ML IV SCH ×2 (01:29→07:56)
[2020-09-20 02:00] VITALS: BP 98/58
[2020-09-20] MEDS: morphine 2 MG/ML inj. syringe IV PRN ×2 (03:41→13:12)
--- NOTE | 2020-09-20 05:00 | NUR ---
Patient refused repositioning and wound care this shift. Education was given about the benefits of repositioning and keeping up with wound care but still refused stating, "They can do it in the morning". Will keep monitoring patient and pass on to day shift.
[2020-09-20 06:00] VITALS: BP 95/60
--- NOTE | 2020-09-20 06:05 | NUR ---
Patient in room PCU 3010. I have received report from Wolf CASTRO and had the opportunity to ask questions and assume patient care.
[2020-09-20 06:08] LABS: BASOPHILS # (AUTO) 0.1 X10'3 (0-0.2); BASOPHILS % (AUTO) 0.9 % (0-1); EOSINOPHILS # (AUTO) 0.2 X10'3 (0-0.9); HEMATOCRIT 30.2 % (42.0-52.0); HEMOGLOBIN 9.7 g/dl (14.0-17.9); LYMPHOCYTES # (AUTO) 1.1 X10'3 (1.1-4.8); LYMPHOCYTES % (AUTO) 15.5 % (21-51); MEAN CORPUSCULAR HEMOGLOBIN 25.2 PG (27.0-31.0); MEAN CORPUSCULAR HGB CONC 32.2 g/dL (33.0-36.5); MEAN CORPUSCULAR VOLUME 78.3 FL (78-98); MEAN PLATELET VOLUME 6.8 FL (7.4-10.4); MONOCYTES # (AUTO) 0.4 X10'3 (0-0.9); MONOCYTES % (AUTO) 5.9 % (2-12); NEUTROPHILS # (AUTO) 5.1 X10'3 (1.8-7.7); NEUTROPHILS % (AUTO) 74.7 % (42-75); PLATELET COUNT 439 X10'3 (140-440); RED BLOOD COUNT 3.86 X10'6 (4.70-6.10); RED CELL DISTRIBUTION WIDTH 19.8 % (11.5-14.5); WHITE BLOOD COUNT 6.8 X10'3 (4.5-11.0)
--- NOTE | 2020-09-20 06:08 | NUR ---
Problems reprioritized. Patient report given, questions answered & plan of care reviewed with Azeem CASTRO.
[2020-09-20 06:22] LABS: ANION GAP 8 (8-16); BLOOD UREA NITROGEN 28 MG/DL (7-18); BUN/CREATININE RATIO 32.2 (5.4-32.0); CALCIUM 8.5 MG/DL (8.5-10.1); CHLORIDE 104 MMOL/L (99-107); CREATININE 0.87 MG/DL (0.60-1.10); GLUCOSE 101 MG/DL (70-104); POTASSIUM 4.4 MMOL/L (3.5-5.1); SODIUM 141 MMOL/L (135-145); TOTAL CARBON DIOXIDE 28.8 MMOL/L (24-32); eGFR > 90 ML/MIN
[2020-09-20 06:58] LABS: ANISOCYTOSIS 2+; HYPOCHROMASIA 1+; MICROCYTOSIS 1+; PLATELET ESTIMATE NORMAL; POLYCHROMASIA 1+; STOMATOCYTES 1+
[2020-09-20] MEDS: lactobacillus rhamnosus 10,000 MMU CELLS/CAPSULE PO SCH (07:57)
[2020-09-20] MEDS: pantoprazole 40mg Tablet.DR PO SCH (07:57)
[2020-09-20] MEDS: gabapentin 300mg capsule PO SCH (07:57)
[2020-09-20] MEDS: phenazopyridine 100mg tablet PO SCH ×2 (07:57→13:00)
[2020-09-20] MEDS: methadone 5mg tablet PO SCH (07:57)
[2020-09-20] MEDS: cyclobenzaprine 10mg tablet PO SCH (07:58)
[2020-09-20] MEDS: furosemide 20MG tablet PO SCH (07:58)
[2020-09-20] MEDS: LORazepam 1 MG tablet PO SCH (07:58)
[2020-09-20] MEDS: fentaNYL 25MCG/hour patch.TD72 TD SCH (10:36)
[2020-09-20] MEDS ORDERED: tamsulosin capsule PO (10:49)
[2020-09-20 11:00] VITALS: BP 105/61
[2020-09-20] MEDS: HYDROcodone/acetaminophen 5mg/325mg tablet PO PRN (11:07)
--- NOTE | 2020-09-20 13:40 | NUR ---
Pt DC'd home with [facility]. IV removed, canula intact. Tele-box removed and returned to [employer]. Pt alert and oriented and vitals WNL upon DC. per Dr. Hubbard; Pt is stable for DC. DC paperwork printed out and one over with Pt. Allowed Pt to ask questions concerning DC and then answered them. new prescriptions called into [facility] in [facility]. Pt will have follow up with Dr. Morgan in the next couple of weeks. Pt's belongings gathered and sent with Pt. Pt wheeled down [facility] to ambulance by [facility] team. Pt left in ambulance for home with [facility] personal.
== END 2020-09-20 13:55 | disposition home or self-care (01) | DRG 710 ==
LOC: ER 10:10 → ED HOLD 13:03 → PCU 3S 17:59
PROVIDERS: ADMIT Family Medicine; ATTEND Family Medicine
PROC: 0T778DZ Dilation of Left Ureter with Intraluminal Device, Via Natural or Artificial Opening Endoscopic (ICD-10-PCS; 2020-09-10)
PROC: BT1F1ZZ Fluoroscopy of Left Kidney, Ureter and Bladder using Low Osmolar Contrast (ICD-10-PCS; 2020-09-10)
PROC: 0T2BX0Z Change Drainage Device in Bladder, External Approach (ICD-10-PCS; 2020-09-10)
PROC: BT1F1ZZ Fluoroscopy of Left Kidney, Ureter and Bladder using Low Osmolar Contrast (ICD-10-PCS; 2020-09-19)
PROC: 0T778DZ Dilation of Left Ureter with Intraluminal Device, Via Natural or Artificial Opening Endoscopic (ICD-10-PCS; 2020-09-19)
PROC: 0TC18ZZ Extirpation of Matter from Left Kidney, Via Natural or Artificial Opening Endoscopic (ICD-10-PCS; principal; 2020-09-19 12:37)
DX: A41.50 Gram-negative sepsis, unspecified (principal); N13.6 Pyonephrosis; N17.9 Acute kidney failure, unspecified; S72.001A Fracture of unspecified part of neck of right femur, initial encounter for closed fracture; E87.1 Hypo-osmolality and hyponatremia; G82.50 Quadriplegia, unspecified; G89.4 Chronic pain syndrome; N31.9 Neuromuscular dysfunction of bladder, unspecified; K56.7 Ileus, unspecified; R65.20 Severe sepsis without septic shock; Z20.822 Contact with and (suspected) exposure to COVID-19; B96.4 Proteus (mirabilis) (morganii) as the cause of diseases classified elsewhere; D63.8 Anemia in other chronic diseases classified elsewhere; I95.9 Hypotension, unspecified; X58.XXXA Exposure to other specified factors, initial encounter; F41.9 Anxiety disorder, unspecified; Z16.24 Resistance to multiple antibiotics; Z82.0 Family history of epilepsy and other diseases of the nervous system; Z87.311 Personal history of (healed) other pathological fracture; Z87.440 Personal history of urinary (tract) infections; Z87.442 Personal history of urinary calculi; Z88.1 Allergy status to other antibiotic agents; Z88.0 Allergy status to penicillin; Z88.8 Allergy status to other drugs, medicaments and biological substances; Z79.899 Other long term (current) drug therapy; Y93.89 Activity, other specified; Y92.89 Other specified places as the place of occurrence of the external cause; Y99.8 Other external cause status
CPT/HCPCS: 36415; 71045; 73502; 74176; 74420; 76000; 76937; 80048; 80053; 81001; 82948; 83605; 83735; 84145; 85007; 85008; 85025; 86140; 87040; 87077; 87081; 87088; 87186; 87502; 87503; 87635; 93005; 96365; 96375; 97110; 97161; 99285; A4338; A4357; A4618; A7000; C1758; C1769; C2617; C9113; C9803; G0378; J1644; J2185; J2250; J2270; J2370; J2405; J2704; J3010; J3260; J3490; J7030; J7120; P9045; Q9967